=== PATIENT | female | born 1970 | race African-American/Black ===

== ENCOUNTER 2019-10-25 23:41 | Inpatient (IN) | payer OTHER ==
[~2019-10-25] VITALS: Ht 165.1 cm; Wt 66.6 kg
--- NOTE | ~2019-10-25 | HEMODYNAMI ---
PATIENT:ROSHAN ABRAHAM MEDICAL RECORD: [id number] : 72 [id number] ADMISSION DATE: 10/26/19 Generatedon:10/26/201911:48 Patient name: ROSHAN ABRAHAM Patient #: [id number] SSN: : 1970 Date of study: 10/26/2019 Page: Of Hemodynamic Procedure Report Patient Data Patient Demographics Procedure consent was obtained First Name: ROSHAN Gender: Female Last Name: JARAD : 1970 Patient #: [id number] Age: 49 year(s) Race: Black Additional ID: [id number] Contact details Address: [address] [place] [address] State: [place] City: [place] Zip code: [address] Past Medical History Allergies: No known allergies Admission Admission Data Admission Date: 10/26/2019 Admission Time: 0:08 Room #: D2121 Lab Results Lab Result Date: 10/26/2019 Lab Result Time: 0:00 Biochemistry Name Units Result Min Max BUN mg/dl 12 --(-*--)-- 7 18 Creatinine mg/dl 0.8 --(-*--)-- 0.6 1.3 eGFR ml/min 81 *-(----)-- 90 120 NONAFRICAN CBC Name Units Result Min Max Hematocrit % 43.2 --(*---)-- 42 54 Hemoglobin g/dl 14.2 --(*---)-- 13.5 17.5 Procedure Procedure Types Cath Procedure Diagnostic Procedure LHC LH w/Coronaries Sedation Charges Moderate Sedation up to 15 minutes Procedure Description Procedure Date Procedure Date: 10/26/2019 Procedure Start Time: 11:41 Procedure End Time: 11:46 Procedure Staff Name Function Kale Robert MD Performing Physician Mary Rivera RT Monitor Liat Red RT Scrub Jelena Gordon RN Nurse Procedure Data Cath Procedure Fluoroscopy Diagnostic fluoroscopy Total fluoroscopy Time: 0.7 time: 0.7 min min Diagnostic fluoroscopy Total fluoroscopy dose: 362 dose: 362 mGy mGy Contrast Material Contrast Material Type Amount (ml) Isovue 300 44 Entry Location Entry Primary Successful Side Size Upsize Upsize Entry Closure Brewer ccessful Closure Location (Fr) 1 (Fr) 2 (Fr) Remarks Device Remarks Radial Right 6 Fr Mechanical artery Short Compression Estimated blood loss: 5 ml Diagnostic catheters Device Type Used For End Catheter Placement DIAGNOSTIC Thelma 110cm 5 Procedure Fr catheter ([id number]) Procedure Complications No complications Procedure Medications Medication Administration Route Dosage Radial Cocktail added to field 1 syringe (Verapamil 2mg/Nitro 400mcg/Heparin 1500units) Lidocaine 2% added to field 20 Oxygen NC 2 l/min Heparin Flush Bag added to field 2 bags (1000units/500ml NS) 0.9% NaCl I.V. 50 ml/hr Versed I.V. 1 mg Fentanyl 50 mcg Versed I.V. 1 mg Fentanyl 50 mcg Hemodynamics Rest HGB: 14.2 (g/dl) Heart Rate: 75 (bpm) Pressure Samples Time Site Value (mmHg) Purpose Heart Use Rate(bpm) 11:41 LV 75/5,5 Snapshot 101 11:42 AO 87/67(75) Pullback 99 11:42 LV 93/6,10 Pullback 99 Gradients Valve Time Site 1 Site 2 Mean SEP/DFP Peak To Heart Use (mmHg) (sec/min) Peak Rate (mmHg) (bpm) Aortic 11:42 LV AO 3 14 6 99 93/6,10 87/67(75) Calculations Valve P-P Mean Valve Index Valve Source Name Gradient Area Flow (cm2) Aortic 6 3 6 3 Snapshots Pre Cath Intra NCS Post Cath Vital Signs Time Heart Resp SPO2 etCO2 NIBP (mmHg) Rhythm Pain Sedation Rate (ipm) (%) (mmHg) Status Level (bpm) 11:23:30 76 13 99 30.7 133/77(109) NSR 0 (11) 10(A) , No pain 11:27:45 86 15 100 31.5 125/79(98) NSR 0 (11) 10(A) , No pain 11:31:55 81 13 98 30 106/68(92) NSR 0 (11) 10(A) , No pain 11:36:02 84 12 97 30.7 107/68(85) NSR 0 (11) 9(A) , No pain 11:40:08 84 11 96 33.8 110/74(92) NSR 0 (11) 9(A) , No pain 11:44:20 95 11 95 32.3 103/63(89) NSR 0 (11) 10(A) , No pain Medications Time Medication Route Dose Verified Delivered Reason Notes Ef fectiveness by by 11:28:57 Radial Cocktail added 1 Kale Jelena used for (Verapamil to syringe Rembrandt Hedii procedure 2mg/Nitro field MD MACEDO 400mcg/Heparin 1500units) 11:29:06 Lidocaine 2% added 20ml Kale Jelena [facility] MACEDO 11:29:14 Oxygen NC 2 l/min Kale Jelena for low 02 Jakob Heidi sats RN 11:29:27 Heparin Flush added 2 bags Kale Jelena used for Bag to Rembrandt Heidi procedure (1000units/500ml field MD MACEDO NS) 11:29:46 0.9% NaCl I.V. 50 Kale Jelena used for ml/hr Rembrandt Heidi procedure RN 11:34:50 Versed I.V. 1 mg Kale Jelena for Rembrandt Heidi sedation RN 11:34:58 Fentanyl 50 mcg Kale Jelena for Jakob Heidi sedation RN 11:40:54 Versed I.V. 1 mg Kale Jelena for Jakob Heidi sedation RN 11:40:58 Fentanyl 50 mcg Kale Jelena for Jakob Heidi sedation flight engineer instructor Log Time Note 11:00:49 Liat TREADWELL(R) sent for patient. Start room use. 11:09:18 Informed consent obtained and on chart 11::38 Procedure Status Urgent Heart Cath (IP). 11:09:38 Time tracking: Regular hours (M-F 7:00 - 5:00) 11:09:40 Plan of Care:Hemodynamics will remain stable., Cardiac rhythm will remain stable., Comfort level will be maintained., Respiratory function will remain adequate., Patient/ family verbilizes understanding of procedure., Procedure tolerated without complication., Recovers from procedure without complications.. 11:09:50 H&P Date Dictated: 10/26/2019 ER History on chart.. 11:10:48 Patient allergic to No known allergies 11:12:35 Lab Result : BUN 12 mg/dl 11:12:35 Lab Result : Creatinine 0.8 mg/dl 11::35 Lab Result : Hemoglobin 14.2 g/dl 11::35 Lab Result : eGFR NONAFRICAN 81 ml/min 11:12:35 Lab Result : Hematocrit 43.2 % 11:12:51 Stress Test: no; N/A NSTEMI 11:16:55 Patient received from Med II to CCL 1 Alert and oriented. Tansferred to table in Supine position. 11:16:56 Warm blankets applied, and citlaly hugger turned on for patient comfort. 11:16:56 Correct patient and procedure confirmed by team. 11:16:57 ECG and BP/O2 sat monitors applied to patient. 11::28 Vital chart was started 11::31 Baseline sample Acquired. 11:22:38 Rhythm: sinus rhythm 11:22:39 Full Disclosure recording started 11::41 Pre-op teaching completed and patient verbalized understanding. 11::41 Pre-procedure instructions explained to patient. 11:22:50 Family in patients room. 11:22:52 Patient NPO since Midnight. 11:22:54 Is the patient allergic to Iodine/contrast media? No. 11:22:56 Is patient on blood thinner?No 11:22:57 Patient diabetic? No. 11:23:54 Previous problem with sedation/anesthesia? No ? 11:28:13 Snore? Yes 11:28:14 Sleep apnea? No 11:28:15 pt. states not - taking birthcontrol 11:28:15 Deviated septum? No 11:28:15 Opens mouth fully? Yes 11:28:16 Sticks out tongue? Yes 11:28:27 HCG/Urine : pending - PHYSICIAN AWARE AND OKAY SO PROCEED PER ISABELLA 11:28:29 Airway obstruction? No . 11:28:32 Dentures? No ? 11:28:36 Pre procedure: right dorsailis pedis pulse 2+ Normal; easily identifiable; not easily obliterated 11:28:39 Modified Teddy's test Ulnar < 7 seconds 11:28:54 Patient pain scale 0/10 ?. 11:28:57 Radial Cocktail (Verapamil 2mg/Nitro 400mcg/Heparin 1500units) 1 syringe added to field was administered by Jelena Gordon RN; used for procedure; Verbal order read back and verified. 11:28:59 IV patent on arrival in left hand with 0.9% NaCl at [facility]. 11:29:01 Lab results completed and on chart. 11:29:05 Right groin area was prepped with chlora-prep and draped in sterile fashion 11:29:06 Lidocaine 2% 20ml vial added to field was administered by Jelena Gordon RN; for local anesthetic; Verbal order read back and verified. 11:29:06 Alarms reviewed by R. N. 11:29:06 Sharps counted by scrub and verified by R.N. 11:29:14 Oxygen 2 l/min NC was administered by Jelena Gordon RN; for low 02 sats; Verbal order read back and verified. 11:29:27 Heparin Flush Bag (1000units/500ml NS) 2 bags added to field was administered by Jelena Gordon RN; used for procedure; Verbal order read back and verified. 11:29:46 0.9% NaCl 50 ml/hr I.V. was administered by Jelena Gordon RN; used for procedure; Verbal order read back and verified. 11:29:49 Use device set Radial Dx or PCI 11:29:49 ACIST Syringe (70734) opened to sterile field. 11:29:50 Bag Decanter (2002) opened to sterile field. 11:29:51 ACIST Hand Control (52999) opened to sterile field. 11:29:51 ACIST Manifold (88210) opened to sterile field. 11:29:51 Tegaderm 4 x 4 (1626W) opened to sterile field. 11:29:53 Medline Cath Pack ([id number]) opened to sterile field. 11:29:54 MBrace Wrist Support ([id number]) opened to sterile field. 11:29:55 EMERALD Guide Wire (184-531) opened to sterile field. 11:29:56 SHEATH 6FR RAIN (8101108) opened to sterile field. 11:33:04 --------ALL STOP TIME OUT------ 11:33:04 Final Timeout: patient, procedure, and site verified with staff and physician. All members of the team are in agreement. 11:33:05 Right Radial & Right Groin site verified by team. 11:33:11 Fire Safety Assessment: A--An alcohol-based skin anteseptic being used preoperatively., C--Open oxygen or nitrous oxide is being used., D--An ESU, laser, or fiber-optic light is being used. 11:33:14 Physical assessment completed. ASA score P 2 - A patient with mild systemic disease as per Kale Robert MD. 11:33:16 1) 90+ Normal kidney functon but urine findings or structural abnormalities or genetic trait point to kidney disease. 11:33:18 Maximum allowable contrast dose (3.7 X eGFR X 0.75)250 ml. 11:33:21 Sedation plan: IV Moderate Sedation Medication:Versed, Fentanyl 11:34:50 Versed 1 mg I.V. was administered by Jelena Gordon RN; for sedation; Verbal order read back and verified. 11:34:58 Fentanyl 50 mcg was administered by Jelena Gordon RN; for sedation; Verbal order read back and verified. 11:35:30 Zero performed for pressure channel P1 11:38:51 Procedure started. 11:40:54 Versed 1 mg I.V. was administered by Jelena Gordon RN; for sedation; Verbal order read back and verified. 11:40:58 Fentanyl 50 mcg was administered by Jelena Gordon RN; for sedation; Verbal order read back and verified. 11:41:21 Local anesthetic to right radial artery with Lidocaine 2% by Kale Robert MD.INITIAL ACCESS ONLY 11:41:29 A 6 Fr Short sheath was inserted into the Right Radial artery 11:41:51 A DIAGNOSTIC Thelma 110cm 5 Fr catheter (366295) was advanced over the wire and used for Procedure. 11:41:53 LV gram done using HALE 11:42:02 Injector settings: Ml/sec: 5, Volume: 15, 11:42:03 LV hemodynamics recorded. 11:42:12 EF : 55 % 11:43:19 LCA angiography performed. 11:44:26 RCA angiography performed. 11:44:33 Catheter removed. 11:44:38 ZEPHYR REGULAR TR BAND (739658) opened to sterile field. 11:44:48 Sheath removed intact; hemostasis achieved with Mechanical Compression to the Right Radial artery. 11:44:53 Procedure ended.(Physican Out) 11:45:10 Fluoroscopy time 00.70 minutes. 11:45:14 Fluoroscopy dose: 362 mGy 11:45:14 Flurop Dose total: 362 11:45:20 Dose Area Product 04477 mGy/cm. 11:45:23 Contrast amount:Isovue 300 44ml. 11:45:25 Maximum allowable dose exceeded? No. 11:45:26 Sharps counted by scrub and verified by R.N. 11:45:50 [place] band inflated with 10cc of air. 11:45:53 Post-procedure physical assessment completed. ASA score P 2 - A patient with mild systemic disease as per Kale Robert MD. 11:45:56 Post procedure rhythm: sinus rhythm 11:45:58 Estimated blood loss: 5 ml 11:46:00 Post procedure instruction explained to patient.Patient verbalizes understanding. 11:46:00 Patient needs reinforcement of post procedure teaching. 11:46:16 Procedure type changed to Cath procedure, Diagnostic procedure, LHC, [facility] w/Coronaries, Sedation Charges, Moderate Sedation up to 15 minutes 11:46:34 Procedure and supply charges have been captured, reviewed, submitted and are correct. 11:46:37 Procedure Complication : No complications 11:46:39 Vital chart was stopped 11:46:42 [facility] Findings: mild to moderate CAD (<70%) 11:46:45 Operative report dictated upon procedure completion. 11:46:45 See physician's report for complete and final results. 11:46:49 Report given to [facility]. 11:46:56 Patient transfered to [facility] with Bed. 11:46:58 Procedure ended. 11:46:58 Full Disclosure recording stopped 11:47:02 End room use (Document Last) 11:47:35 End room use (Document Last) 11:48:29 End room use (Document Last) Device Usage Item Name Manufacture Quantity Catalog Hospital Part Current Minima l Lot# / Number Charge Number Stock Stock Serial# Code ACIST Acist 1 75110 046874 942082 699306 20 Syringe Medical (39069) Systems Inc Bag Microtek 1 875631 59563 071398 5 Decanter Medical Inc. () ACIST Hand Acist 1 45305 016872 193155 468633 5 Control Medical (84787) Systems Inc ACIST Acist 1 70520 143902 261514 255685 5 Manifold Medical (00737) Systems Inc Tegaderm 4 3M 1 1626W 523792 069880 536655 5 x 4 (1626W) Medline Medline 1 [id number] 098385 51851 688189 5 Cath Pack ([id number]) MBrace Advanced 1 140-0250-00 258432 90451 450954 5 Wrist Vascular Support Dynamics ([id number]) EMERALD Cardinal 1 502-424 912508 665876 382574 5 Guide Wire Health (502-455) SHEATH 6FR Cardinal 1 2130464 089397 3896859 220109 5 [facility] Health (5901176) DIAGNOSTIC Terumo 1 12-4432 657658 889389 663159 5 Thelma 110cm 5 Fr catheter (071278) ZEPHYR Cardinal 1 239226 944698 5289817 239929 5 REGULAR TR Health BAND (644220) Signature Audit [place] Stage Time Signature Unsigned Intra-Procedure 10/26/2019 Mary Rivera 11:47:35 AM RT(R) Intra-Procedure 10/26/2019 Jelena 11:48:29 AM Heidi RN Intra-Procedure 10/26/2019 Kale Osborn 11:48:45 AM Eric ANTHONY [facility] [address] [facility] [place] [address]
[2019-10-25] MEDS ORDERED: HYDROCHLOROTH12.5 M1 PO (23:46)
[2019-10-25] MEDS ORDERED: NORVASC10 MG PO (23:46)
[2019-10-25] MEDS ORDERED: BIRTH CONTROL (23:47)
[2019-10-26 00:46] LABS: TROPONIN-I 1.249 ng/mL (0.000-0.060)
--- NOTE | 2019-10-26 02:09 | NUR ---
RECIEVED REPORT FROM ER NURSE. PT ARRIVED BY WHEELCHAIR. PT AAOX4, AFVSS, NO S/S OF DISTRESS. PT DENIES PAIN. 87 SR ON TELEMETRY. ADMISSION ASSESSMENT COMP. WILL CPOC. CL WITHIN REACH, BED IN LOW, SR UP X2. PT ORIENTED TO ROOM.
--- NOTE | 2019-10-26 03:29 | NUR ---
JONA LUCIO IN PT'S ROOM. JONA ORDER LOVENOX, NS, AND ECHOCARDIOGRAM STAT. LOVENOX AND NS GIVEN. AIRCRAFT INSPECTOR CALLED AND NOTIFIED.
[2019-10-26 04:02] VITALS: BP 153/91; Ht 165.1 cm; Wt 66.6 kg
--- NOTE | 2019-10-26 04:42 | NUR ---
68 MG ENOXAPARIN DC'D. 4OMG SC DAILY ORDERED PER SERVICE CLEANER. PT RESTING COMFORTABLY I BED. DENIES PAIN. WILL CPOC.
[2019-10-26 05:21] LABS: BASOPHILS 0.3 % (0-2); EOSINOPHILS 2.6 % (0-7); HEMATOCRIT 43.2 % (36.0-48.0); HEMOGLOBIN 14.2 g/dL (12-16); IMMATURE GRANULOCYTES 0.2 % (0-5); LYMPHOCYTES 28.1 % (15-50); MCH 28.3 pg (26.0-34.0); MCHC 32.9 g/dL (31.0-37.0); MCV 86.2 fL (80.0-100.0); MONOCYTES 6.2 % (2-11); NEUTROPHILS 62.6 % (40-80); PLATELET COUNT 199 10x3/uL (130-400); RBC 5.01 10x6/uL (4.00-5.40); RDW 13.9 % (11.5-14.5); WBC 14.5 10x3/uL (4.8-10.8)
[2019-10-26 05:31] VITALS: BP 153/91
[2019-10-26 06:16] LABS: ALBUMIN 3.6 g/dL (3.4-5.0); ALKALINE PHOSPHATASE 98 U/L (30-120); ALT (SGPT) 27 U/L (10-68); AMYLASE - SERUM 68 U/L (25-115); BILIRUBIN - TOTAL 0.76 mg/dL (0.2-1.3); CALC OSMOLALITY 277 mosm/kg (275-300); CALCIUM 8.6 mg/dL (8.5-10.1); CARBON DIOXIDE 26.1 mmol/L (21.0-32.0); CHLORIDE - SERUM 101 mmol/L (98-107); CREATINE KINASE 261 UL (21-215); CREATININE - SERUM 0.8 mg/dL (0.6-1.3); GLUCOSE 138 mg/dL (74-106); LIPASE 187 U/L (73-393); MAGNESIUM - SERUM 2.3 mg/dL (1.8-2.4); PHOSPHOROUS 3.8 mg/dL (2.5-4.9); POTASSIUM - SERUM 3.1 mmol/L (3.5-5.1); PRO BNP 114 pg/mL (0-125); PROTEIN - SERUM 7.5 g/dL (6.4-8.2); SODIUM 138 mmol/L (136-145); THYROID STIMULATING HORMONE 1.98 uIU/mL (0.36-3.74); UREA NITROGEN 12 mg/dL (7-18); eGFR NON AFRICAN AMERICAN 81 mL/min (90-120)
[2019-10-26 06:21] LABS: TROPONIN-I 0.997 ng/mL (0.000-0.060)
[2019-10-26 08:19] VITALS: BP 118/71
[2019-10-26 09:12] LABS: CHOL - HDL RATIO 7.4 ratio (2.3-4.1); LDL-HDL RATIO 5.2 ratio (1.5-3.5)
--- NOTE | 2019-10-26 11:14 | NUR ---
PT TO CALENDER MACHINE OPERATOR
[2019-10-26 11:50] LABS: HCG SERUM NEGATIVE (NEGATIVE)
--- NOTE | 2019-10-26 12:10 | NUR ---
RECEIVED PT BACK TO ROOM. VITAL SIGNS STABLE. PLACED PT ON FREQUENT VITAL SIGNS. Z BAND TO RT WRIST DRESSING WITH SMALL AMOUNT OF DRIED BLOOD. INSTRUCTED PT TO KEEP HAND STILL FOR 2HRS. PT ASKING FOR LUNCH TRAY. PT DENIES ANY OTHER NEEDS AT THIS TIME. CALL LIGHT IN REACH, NAD NOTED,W ILL CONTINUE TO MONITOR.
--- NOTE | 2019-10-26 13:47 | CN ---
PATIENT NAME:ROSHAN ABRAHAM MEDICAL RECORD: [id number] : 72 LOCATION:D. D.2121 ADMIT DATE: 10/26/19 ACCOUNT: [id number] CONSULTING PHYSICIAN: DARLINE BANERJEE MD REFERRING PHYSICIAN: WALDO BUCIO MD DATE OF CONSULTATION: 10/26/2019 HISTORY OF PRESENT ILLNESS: A 49-year-old female with a strong history of coronary artery disease, history of hypertension, presented with elevated blood pressure to the primary care office with some mild dyspnea and the other compliance, she is found to have elevated cardiac enzymes and abnormal ECG consistent with NSTEMI and is brought here for further evaluation. PAST MEDICAL HISTORY: Includes history of hypertension, unknown cholesterol level. ALLERGIES: None known. MEDICATIONS: Typically, amlodipine 10 mg p.o. daily, HCTZ 12.5 every day. SOCIAL HISTORY: Lives in [place]. Smokes less than a pack a day. Social drinker. No illicit drugs. Stays quite active. REVIEW OF SYSTEMS: The patient reports easy bruising but reports no swollen glands. The patient reports no fever, no night sweats, no significant weight gain, no significant weight loss. No significant exercise tolerance. The patient reports no dry eyes, no irritation, no vision change. Patient reports no difficulty hearing and no ear pain. Patient reports no frequent nose bleeds or nose and sinus problems. Patient reports on arm pain on exertion. No shortness of breath while lying down. No history of heart murmur. Patient reports no cough, no wheezing or coughing up blood. Patient reports no abdominal pain, no vomiting. Normal appetite. No diarrhea and not vomiting blood. No nausea and no constipation. Patient reports no incontinence. No difficulty urinating. No hematuria. No increased frequency. Patient reports no muscle aches. No weakness, no arthralgias, no back pain. No swelling of the extremities. Patient reports no abnormal mole, no jaundice, no rashes. Reports no loss of consciousness. No weakness and no numbness. No seizures, dizziness, or headaches. The patient reports no depression, no sleep disturbance, feeling safe in a relationship and no alcohol abuse. Patient reports on fatigue. Reports no runny nose or sinus pressure. No itching, no hives, and no frequent sneezing. PHYSICAL EXAMINATION: GENERAL: Pleasant female, in no acute distress, appears stated age. VITAL SIGNS: Blood pressure 118/71, pulse 102 and regular. HEENT: Normocephalic, atraumatic. NECK: No JVD or bruit. HEART: Regular, II/ systolic ejection murmur. LUNGS: Good air excursion. ABDOMEN: Soft, nontender. EXTREMITIES: Pulses 2+ with no edema. NEUROLOGIC: Grossly intact. DIAGNOSTIC DATA: ECG shows nonspecific ST-T changes laterally, poor R-wave progression. CONSULT REPORT [id number] ROSHAN ABRAHAM IMPRESSION: Vxy-OW-tqiosqlov myocardial infarction. PLAN: For angiography, intervention based on above. TRANSINT:[id number] Voice Confirmation ID: [id number] DOCUMENT ID: [id number] DARLINE BANERJEE MD at 1347 CC: [id number] DICTATION DATE: 10/26/19 0854 AUTO DEALERSHIP PORTER: 10/26/19 1123 ADM IN [place] [id number] [place] [id number]
--- NOTE | 2019-10-26 13:47 | EC ---
PATIENT:ROSHAN ABRAHAM DATE OF SERVICE: 10/26/19 SEX: F MEDICAL RECORD: [id number] DATE OF : [birth year] LOCATION:D.M2 D.212 AGE OF PATIENT: 49 ADMISSION DATE: 10/26/19 REFERRING PHYSICIAN: INTERPRETING PHYSICIAN: DARLINE BANERJEE MD ECHOCARDIOGRAM REPORT ECHO CHARGES 4 ECHO COMPLETE Date: 10/26/19 CLINICAL DIAGNOSIS: ASSESS FOR RIGHT ATRIAL HYPERTROPHY,PE, ELVEVATED D DIMER/TROPONIN ECHOCARDIOGRAPHIC MEASUREMENTS (adult normal given) AC root (d.<3.7cm) 2.9 cm LV Septum d (<1.2 cm> 1.1 cm Valve Excursion 1.5 cm LV Septum (systole) 1.4 cm Left Atria (s.<4.0cm> 2.9 cm LVPW d(<1.2cm) 1.3 cm RV (d.<2.3cm) 2.9 cm LVPW (sytole) 1.5 cm LV diastole(<5.6CM) 4.1 cm MV E-F(>70mm/sec) cm LV systole 2.9 cm LVOT Diameter 2.1 cm MV exc.(>10mm) 1.7 cm Est.ejection fraction (50-75%) % DOPPLER: LVIT cm/sec A 97.0 cm/sec E 51.0 cm/sec LA cm/sec RVSP 20 mmHg LVOT 86 cm/sec AOP1/2T m/s Asc. Ao 143 cm/sec RVOT 75 cm/sec RA cm/sec PA 110 cm/sec AV Gradient Peak 8.19 mmHg AV Mean 4.95 mmHg AV Area 2.1 cm MV Gradient Peak 3.68 mmHg MV Mean 1.61 mmHg MV Area cm COMMENTS: Hide Trimmer: 2 JOSE DC Feed Mixer: 3 Dr. Rosales TAPE# PACS Pericardial Effusion N DATE OF SERVICE: Adequate 2D, color flow imaging, spectral Doppler, and M-Mode No LVH. LV internal dimension is normal. Wall motion is normal. EF is greater than or equal to 55%. Aortic valve is tricuspid. No evidence of stenosis by Doppler interrogation. Left atrium is normal at 3.9 cm. Mitral valve shows no prolapse. Right-sided chambers are grossly normal. Trace TR. No evidence of RV strain or overload. ECHOCARDIOGRAM REPORT [id number] ROSHAN ABRAHAM TRANSINT:[id number] Voice Confirmation ID: [id number] DOCUMENT ID: [id number] DARLINE BANERJEE MD at 1347 CC: [id number] DICTATION DATE: 10/26/19925 PRINTED CIRCUIT BOARDS INSPECTOR: 10/26/19 1014 ADM IN [facility] [address] [place] [address]
[2019-10-26 16:20] VITALS: BP 124/69
--- NOTE | 2019-10-26 16:25 | NUR ---
Z BAND COMPLETELY REMOVED. APPLIED 2X2 AND BANDAID. PT RESTING COMFORTABLY IN BED, DENIES ANY NEEDS AT THIS TIME. CALL LIGHT IN REACH, NAD NOTED, WILL CONTINUE TO MONITOR.
[2019-10-26 20:32] VITALS: BP 141/83
[2019-10-27] VITALS: BP 113/66
--- NOTE | 2019-10-27 04:29 | NUR ---
RESTING WITH EYES CLOSED, RESPERATIONS EVEN, NO S/S DISTRESS NOTED.
[2019-10-27 04:35] LABS: BASOPHILS 0.2 % (0-2); EOSINOPHILS 3.4 % (0-7); HEMATOCRIT 42.7 % (36.0-48.0); HEMOGLOBIN 13.6 g/dL (12-16); IMMATURE GRANULOCYTES 0.1 % (0-5); LYMPHOCYTES 33.5 % (15-50); MCH 27.9 pg (26.0-34.0); MCHC 31.9 g/dL (31.0-37.0); MCV 87.7 fL (80.0-100.0); MEAN PLATELET VOLUME 9.6 fL (7.4-10.4); MONOCYTES 6.1 % (2-11); NEUTROPHILS 56.7 % (40-80); PLATELET COUNT 210 10x3/uL (130-400); RBC 4.87 10x6/uL (4.00-5.40); WBC 12.1 10x3/uL (4.8-10.8)
[2019-10-27 04:50] VITALS: BP 131/84
[2019-10-27 05:13] LABS: ALBUMIN 3.1 g/dL (3.4-5.0); ALKALINE PHOSPHATASE 95 U/L (30-120); BILIRUBIN - TOTAL 0.46 mg/dL (0.2-1.3); CALC OSMOLALITY 275 mosm/kg (275-300); CALCIUM 8.3 mg/dL (8.5-10.1); CARBON DIOXIDE 25.7 mmol/L (21.0-32.0); CHLORIDE - SERUM 105 mmol/L (98-107); CREATININE - SERUM 0.7 mg/dL (0.6-1.3); GLUCOSE 111 mg/dL (74-106); MAGNESIUM - SERUM 2.3 mg/dL (1.8-2.4); PHOSPHOROUS 3.4 mg/dL (2.5-4.9); PROTEIN - SERUM 7.1 g/dL (6.4-8.2); SODIUM 138 mmol/L (136-145); UREA NITROGEN 11 mg/dL (7-18); eGFR NON AFRICAN AMERICAN > 90 mL/min (90-120)
[2019-10-27 05:15] LABS: ALT (SGPT) 19 U/L (10-68); POTASSIUM - SERUM 3.8 mmol/L (3.5-5.1)
[2019-10-27 05:17] LABS: TROPONIN-I 0.418 ng/mL (0.000-0.060)
--- NOTE | 2019-10-27 07:48 | NUR ---
ASSESSMENT DONE. DENIES NEEDS
--- NOTE | 2019-10-27 09:13 | NUR ---
I have reviewed this patient and I concur with the Shift Assessment completed by the Licensed Practical Nurse today this shift.
[2019-10-27 09:44] VITALS: BP 138/78
--- NOTE | 2019-10-27 14:26 | OP ---
PATIENT NAME: ROSHAN ABRAHAM MEDICAL RECORD: [id number] :72 LOCATION:D.M2 D.2121 ADMISSION DATE:10/26/19 SURGEON: DARLINE BANERJEE MD DATE OF OPERATION: 10/26/2019 PROCEDURE: Left heart catheterization, selective coronary angiography, right radial approach. CATHETERS: Radial sheath, [place] catheter. The procedure was well tolerated. The patient returned to the rosas, sheath removed. TR band was placed. FINDINGS: Left ventriculography in 30-degree HALE view: Normal wall motion. Normal systolic function. CORONARY ANATOMY: LEFT MAIN: Left main is free of disease. LAD: Free of disease in the diagonal system. CIRCUMFLEX: Free of disease in the marginal system. RIGHT CORONARY ARTERY: Has luminal irregularities with distal PD. There is about 36% stenosis, does not appear to be flow obstructive. IMPRESSION: SPECT cardiac enzymes secondary to more restraint at this point. No critical lesions. Medical management and workup for possible PE. TRANSINT:[id number] Voice Confirmation ID: [id number] DOCUMENT ID: [id number] DARLINE BANERJEE MD at 1426 CC: [id number] DICTATION DATE: 10/26/19 1201 CLINICAL RESEARCHER: 10/26/19 1556 ADM IN [place] [id number] [place] [address]
--- NOTE | 2019-10-27 15:30 | NUR ---
DC GIVEN TO PT
--- NOTE | 2019-10-27 15:42 | NUR ---
DC HOME PER PERSONAL CAR
--- NOTE | 2019-10-27 17:32 | MORECARE ---
CASE MANAGEMENT DISCHARGE SUMMARY PATIENT: ROSHAN ABRAHAM UNIT: [id number] ADM DATE: 10/26/19 AGE: 49 : 72 SEX: F ROOM/BED: D.5213 AUTHOR: GIULIA,DOC PHYSICIAN: REFERRING PHYSICIAN: WALDO BUCIO MD DATE OF SERVICE: 10/27/19 Discharge Plan Patient Name: ROSHAN ABRAHAM Facility: [facility]:[place] : 1970 Planned Disposition: Home Anticipated Discharge Date: 10/27/19 Discharge Date: 10/27/2019 Expected LOS: 1 Initial Reviewer: [email or web address] Initial Review Date: 10/27/2019 Generated: 10/27/19 6:32 pm Comments DCP- Discharge Planning Updated by [email or web address]: Norm Otoole on 10/27/19 4:[address] Patient Name: ROSHAN ABRAHAM Admission Status: ER Accout number: [id number] Admission Date: 10-26-2019 : 1970 Admission Diagnosis: Attending: WALDO BUCIO Current LOS: 1 Anticipated DC Date: 10-27-2019 Planned Disposition: Home Primary Insurance: [facility] Discharge Planning Comments: CM MET WITH PT IN ROOM TO DISCUSS DISCHARGE PLANNING AND NEEDS. PT REPORTS LIVING AT HOME INDEPENDENTLY AND IN THE HOME IS ADULT SON. PT HAS NO MEDICAL EQUIPMENT AND NO OUTSIDE SERVICES ASSISTING IN THE HOME. CM DISCUSSED AVAILABILITY OF HOME HEALTH, REHAB SERVICES AND MEDICAL EQUIPMENT. PT DENIES DISCHARGE NEEDS, REPORTS HER SON WILL PICK HER UP FOR DISCHARGE HOME. WINDOW DRESSER NURSE NOTIFED. Coke Oven Patcher: Norm Otoole DCPIA - Discharge Planning Initial Assessment Updated by [email or web address]: Norm Otoole on 10/27/19 5:26 pm * Is the patient Alert and Oriented? Yes * How many steps to enter\exit or inside your home? 14 * PCP DR. IZQUIERDO * Pharm[facility] [place] * Preadmission Environment Home with Family * ADLs Independent * Equipment None * Other Equipment DME PROVIDER IN [place] - PREFERRED PROVIDER * List name and contact numbers for known caregivers / representatives who currently or will assist patient after discharge: SHAE TAVAREZ, DARRIN, * Verbal permission to speak to the caregivers and representatives has been obtained from the patient. N/A * Community resources currently utilized None * Please name any agencies selected above. NONE * Additional services required to return to the preadmission environment? No * Can the patient safely return to the preadmission environment? Yes * Has this patient been hospitalized within the prior 30 days at any hospital? No Patient Name: ROSHAN ABRAHAM Page [id number] at 1732 All edits/amendments must be made on the electronic document DICTATION DATE: 10/27/191731 CIGARETTE SELLER: LIZ 10/27/191731 RPT#: [id number] DC DATE:10/27/19 STATUS: DIS IN [facility] [address] [place] [address] END OF REPORT
== END 2019-10-27 15:43 | disposition home or self-care (01) | DRG 281 ==
LOC: D.ER 23:41 → D.M2 10-26 00:08
PROVIDERS: Emergency Medicine; Family Medicine; Internal Medicine Interventional Cardiology; ADMIT Family Medicine; ATTEND Family Medicine
PROC: B2151ZZ Fluoroscopy of Left Heart using Low Osmolar Contrast (ICD-10-PCS; 2019-10-26)
PROC: 4A023N7 Measurement of Cardiac Sampling and Pressure, Left Heart, Percutaneous Approach (ICD-10-PCS; 2019-10-26)
PROC: B2111ZZ Fluoroscopy of Multiple Coronary Arteries using Low Osmolar Contrast (ICD-10-PCS; principal; 2019-10-26 11:00)
DX: I21.4 Non-ST elevation (NSTEMI) myocardial infarction (principal); F17.213 Nicotine dependence, cigarettes, with withdrawal; R91.1 Solitary pulmonary nodule; J44.9 Chronic obstructive pulmonary disease, unspecified; I10 Essential (primary) hypertension; E78.5 Hyperlipidemia, unspecified; J30.9 Allergic rhinitis, unspecified; E87.6 Hypokalemia; I25.10 Atherosclerotic heart disease of native coronary artery without angina pectoris

== ENCOUNTER → 2019-12-05 14:05 | Outpatient (CLI) | payer OTHER ==
[2019-10-26 04:02] VITALS: BMI 25.0
[~2019-12-05 14:05] MED LIST: BIRTH CONTROL; HYDROCHLOROTH12.5 M1 PO; NORVASC10 MG PO
== END | disposition home or self-care (01) ==
LOC: D.RT 14:05
PROVIDERS: ATTEND Internal Medicine Pulmonary Disease
DX: R06.09 Other forms of dyspnea (principal)

== ENCOUNTER 2019-12-13 07:46 | Outpatient (CLI) | payer SELFPAY ==
[~2019-12-13] VITALS: Ht 160 cm; Wt 63.6 kg
[2019-12-13 08:18] LABS: BASOPHILS 0.1 % (0-2); EOSINOPHILS 1.4 % (0-7); HEMATOCRIT 44.2 % (36.0-48.0); HEMOGLOBIN 14.1 g/dL (12-16); IMMATURE GRANULOCYTES 0.3 % (0-5); LYMPHOCYTES 20.6 % (15-50); MCH 27.8 pg (26.0-34.0); MCHC 31.9 g/dL (31.0-37.0); MONOCYTES 4.2 % (2-11); NEUTROPHILS 73.4 % (40-80); PLATELET COUNT 231 10x3/uL (130-400); RBC 5.08 10x6/uL (4.00-5.40); WBC 14.7 10x3/uL (4.8-10.8)
[2019-12-13 08:24] LABS: APTT 26.7 SECONDS (22.8-39.4); INR 1.12 (0.85-1.17); PROTIME 14.4 SECONDS (11.6-15.0)
[2019-12-13 08:27] LABS: CALC OSMOLALITY 278 mosm/kg (275-300); CALCIUM 9.1 mg/dL (8.5-10.1); CARBON DIOXIDE 29.3 mmol/L (21.0-32.0); CHLORIDE - SERUM 101 mmol/L (98-107); CREATININE - SERUM 0.7 mg/dL (0.6-1.3); GLUCOSE 127 mg/dL (74-106); POTASSIUM - SERUM 3.4 mmol/L (3.5-5.1); SODIUM 139 mmol/L (136-145); UREA NITROGEN 9 mg/dL (7-18); eGFR NON AFRICAN AMERICAN > 90 mL/min (90-120)
[2019-12-13 09:05] VITALS: BP 143/83; Ht 160 cm; Wt 63.6 kg
[2019-12-13 09:08] LABS: HCG URINE NEGATIVE (NEGATIVE)
--- NOTE | 2019-12-13 15:17 | NUR ---
1430 IV DC'ED WITH CATH INTACT. DRESSING. Scott FORMAN R.N. 1453 DRESSED. AWAKE & ALERT. GIVEN DISCHARGE INSTRUCTIONS, MED REC, & POST CT GUIDED BIOPSY D/C INSTRUCTIONS. VOICED UNDERSTANDING. TO PRIVATE CAR PER WHEELCHAIR BY THIS NURSE. HOME WITH SHAE TAVAREZ. Scott FORMAN R.N.
[2019-12-14 17:08] LABS: ACID FAST SMEAR Negative (()); AFB SPECIMEN PROCESSING Concentration (())
== END 2019-12-13 14:53 | disposition home or self-care (01) ==
LOC: D.SP 07:46 → D.CT 10:00 → D.SP 14:53
PROVIDERS: Specialist; ATTEND Internal Medicine Pulmonary Disease
DX: R91.8 Other nonspecific abnormal finding of lung field (principal); I10 Essential (primary) hypertension; Z72.0 Tobacco use; R06.09 Other forms of dyspnea; R59.0 Localized enlarged lymph nodes